=== PATIENT | female | born 1950 | race Two or more races ===

== ENCOUNTER 2017-08-18 09:05 | Outpatient (CLI) | payer OTHER | END 2017-08-18 11:10 | disposition home or self-care (01) | LOC: MAMO-SONO 09:05 | DX: Z12.31 Encounter for screening mammogram for malignant neoplasm of breast (principal); Z87.898 Personal history of other specified conditions; N63.10 Unspecified lump in the right breast, unspecified quadrant; N63.20 Unspecified lump in the left breast, unspecified quadrant ==

== ENCOUNTER 2017-10-11 08:54 | Outpatient (CLI) | payer OTHER | END 2017-10-11 08:57 | disposition home or self-care (01) | LOC: LAB 08:54 | DX: N60.21 Fibroadenosis of right breast (principal); Z01.812 Encounter for preprocedural laboratory examination; Z01.810 Encounter for preprocedural cardiovascular examination ==

== ENCOUNTER 2017-10-11 10:40 | Outpatient (CLI) | payer OTHER | END 2017-10-11 10:42 | disposition home or self-care (01) | LOC: RAD 10:40 | DX: N60.21 Fibroadenosis of right breast (principal); Z01.811 Encounter for preprocedural respiratory examination ==

== ENCOUNTER 2017-10-31 05:40 | Day surgery (SDC) | payer OTHER ==
[~2017-10-31 05:40] MED LIST: [UNRECOGNIZED DRUG - OTHER]; [UNRECOGNIZED DRUG - OTHER]
== END 2017-10-31 13:50 | disposition home or self-care (01) ==
LOC: CIR.AMB 05:40
DX: D24.1 Benign neoplasm of right breast (principal)

== ENCOUNTER 2017-10-31 07:16 | Outpatient (CLI) | payer OTHER | END 2017-10-31 07:48 | disposition home or self-care (01) | LOC: MAMO-SONO 07:16 | DX: N60.21 Fibroadenosis of right breast (principal) ==

== ENCOUNTER 2019-03-13 13:39 | Outpatient (CLI) | payer OTHER | END 2019-03-13 13:41 | disposition home or self-care (01) | LOC: RAD 13:39 | DX: M25.872 Other specified joint disorders, left ankle and foot (principal) ==